=== PATIENT | female | born 1960 | race Caucasian/White ===

== ENCOUNTER 2024-03-03 03:32 | Inpatient (IN) | payer MEDICARE, OTHER, SELFPAY ==
[2024-03-02 23:11] VITALS: BMI 42.3
[2024-03-02 23:17] VITALS: BP 107/75
[2024-03-02 23:37] LABS: % Basophils 0.6 % (0-2); % Eosinophils 3.6 % (0-6); % Immature Granulocytes 1.8 % (0-0.5); % Lymphocytes 12.3 % (20.5-51.1); % Monocytes 10.7 % (1.7-9.3); Absolute Basophils 0.1 10^3/uL (0-0.2); Absolute Eosinophils 0.3 10^3/uL (0-0.7); Absolute Immature Granulocytes 0.2 10^3/uL (0-0.05); Absolute Lymphocytes 1.1 10^3/uL (1.2-3.4); Absolute Neutrophils 6.4 10^3/uL (1.4-6.5); Hematocrit 27.5 % (37.0-47.0); Hemoglobin 8.6 g/dL (12.0-16.0); Mean Corp Hgb Conc. 31.3 g/dL (33.0-37.0); Mean Corpuscular Hgb 30.2 pg (27.0-31.0); Mean Corpuscular Volume 96.5 fL (81.0-99.0); Mean Platelet Volume 8.7 fL (7.4-10.4); Nucleated Red Blood Cells % 0 %; Platelet Count 364 10^3/uL (130-400); Red Blood Cell Count 2.85 10^6/uL (4.20-5.40); Red Cell Dist. Width 14.6 % (11.5-14.5)
[2024-03-02 23:40] LABS: ALT (SGPT) < 10 U/L (0-35); AST (SGOT) 16 U/L (14-36); Albumin 2.6 g/dl (3.5-5.0); Alkaline Phosphatase 286 U/L (38-126); Blood Urea Nitrogen 25 mg/dl (7-17); Calcium 8.5 mg/dl (8.4-10.2); Carbon Dioxide 34 mmol/L (22-30); Chloride 100 mmol/L (98-107); Estimated Creatinine Clearance 98 ml/min; Glucose 107 mg/dl (70-99); Sodium 135 mmol/L (135-145); Total Bilirubin 0.3 mg/dl (0.2-1.3); Total Protein 5.8 g/dl (6.3-8.2); eGFR > 60.00
[2024-03-03] VITALS (26 sets, daily range): BP systolic 96–162; BP diastolic 38–128; BMI 44.0
[2024-03-03] MEDS: MORPHINE SULFATE 4 MG IV (02:04)
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
[2024-03-03] MEDS: NSS 500 IV (02:53)
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
[2024-03-03 07:08] LABS: Hematocrit 26.7 % (37.0-47.0); Hemoglobin 8.2 g/dL (12.0-16.0); Mean Corp Hgb Conc. 30.7 g/dL (33.0-37.0); Mean Corpuscular Hgb 29.8 pg (27.0-31.0); Mean Corpuscular Volume 97.1 fL (81.0-99.0); Mean Platelet Volume 8.7 fL (7.4-10.4); Platelet Count 364 10^3/uL (130-400); Red Blood Cell Count 2.75 10^6/uL (4.20-5.40); Red Cell Dist. Width 14.9 % (11.5-14.5); White Blood Cell Count 8.9 10^3/uL (4.8-10.8)
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
[2024-03-03] MEDS: ARTANE 1 MG PO ×2 (07:43→20:22)
[2024-03-03] MEDS: LASIX 20 MG PO (07:43)
[2024-03-03] MEDS: TYLENOL 1000 MG PO ×2 (07:43→21:27)
[2024-03-03] MEDS: COLACE 100 MG PO ×2 (07:44→20:23)
[2024-03-03] MEDS: PROTONIX 40 MG PO (07:44)
[2024-03-03] MEDS: DEPAKOTE (12 HR RELEASE) 750 MG PO ×2 (07:44→21:25)
[2024-03-03] MEDS: LUMINAL 32.4 MG PO ×2 (07:44→20:23)
[2024-03-03] MEDS: SINGULAIR 10 MG PO (07:44)
[2024-03-03] MEDS: SEROQUEL 200 MG PO ×2 (07:44→21:27)
[2024-03-03] MEDS: KLONOPIN 0.25 MG PO ×2 (07:44→22:25)
[2024-03-03] MEDS: SEROQUEL 50 MG PO (07:44)
[2024-03-03] MEDS: PAXIL 30 MG PO (07:44)
[2024-03-03] MEDS: SYNTHROID 150 MCG PO (07:44)
[2024-03-03] MEDS: SYMBICORT 80/4.5 MCG INHALER 2 PUFF INH ×2 (07:54→20:10)
[2024-03-03 08:03] LABS: Blood Urea Nitrogen 22 mg/dl (7-17); Calcium 8.5 mg/dl (8.4-10.2); Carbon Dioxide 32 mmol/L (22-30); Chloride 103 mmol/L (98-107); Estimated Creatinine Clearance 117 ml/min; Glucose 90 mg/dl (70-99); Iron 48 ug/dl (37-170); Sodium 137 mmol/L (135-145); eGFR > 60.00
[2024-03-03 08:12] LABS: Percent Saturation 17 % (20-50); Total Iron Binding Capacity 272 ug/dl (265-497)
[2024-03-03 08:53] LABS: Vitamin B12 634 pg/ml (239-931)
--- NOTE | 2024-03-03 12:15 | CON.CAR ---
Addendum entered and electronically signed by Renato Burrell MD 03/03/24 13:03:
I saw and examined the patient.
The SUPERVISOR PASTE MIXING's note was reviewed and I agree with the note.
Comment:
63-year-old female with schizoaffective disorder, bilateral lower extremity lymphedema and DVT on apixaban who presents with hip fracture following a mechanical fall from her wheelchair. Cardiology is consulted for preoperative risk stratification.
She has no known cardiac history. She is a poor historian but denies any active cardiac symptoms including chest pain, shortness of breath, and syncope. According to her home medication list, she takes Lasix as needed for her lymphedema,
simvastatin for hyperlipidemia, and apixaban for history of PE but is not on any other cardiac meds to suggest that she has coronary artery disease, heart failure, or arrhythmia. Her physical exam is notable for a regular rate and rhythm with no
murmurs, rubs, gallops. She has lower extremity edema bilaterally that appears to be chronic and lungs are clear to auscultation. Labs are notable for creatinine 0.6, hemoglobin 8.2, and normal electrolytes. ECG from 03/02/2024 shows normal sinus
rhythm with low voltage and no evidence of ischemia. In terms of preoperative risk stratification, we are not able to get an accurate assessment of her exercise tolerance due to her being wheelchair-bound but there is nothing in her history,
physical, labs, or ECG to suggest that she has unstable cardiac disease that would preclude surgery. She is at moderate risk for surgery due to her obesity and anemia but I do not think that she needs any further cardiovascular testing prior to
undergoing surgery (which is already planned for 1 PM today). Cardiology will see her postoperatively to ensure that she is stable. Recommend continued telemetry monitoring in the perioperative period. Please call with any additional questions or
concerns.
Original Note:
Consultation
Consultation Request
Date/Time Consultation Requested: 03/03/2024 11:45
Date/Time Consultation Performed: 03/03/2024 11:55
Requesting Provider: Dr. Buchanan
Performing Provider: SEVEN Lara for Dr. Burrell
Reason for Consultation: Cardiac risk assessment
Medical History
-
Chief Complaint: Left lower extremity pain
History of Present Illness:
Germania Segovia is a 63-year-old female with schizoaffective disorder, bipolar disorder, parkinsonism, bilateral lower extremity lymphedema, seizure disorder, hypothyroidism, DVT (apixaban), asthma, cerebral aneurysm with coiling, SURGICAL FORCEPS FABRICATOR shunt, and
chronic ambulatory dysfunction who presented to the emergency department the chief complaint of left lower extremity pain. She endorsed associated swelling. She fell out of her wheelchair last week and has had pain since then. X-rays were
completed at her nursing facility and revealed a femoral fracture. She was then sent to the emergency department this morning for evaluation. Cardiology was consulted for risk assessment. Due to her mental status, she is not able to provide
detailed history. She is able to verbalize she is having no chest pain, shortness of breath, nor dizziness.
Past Medical History
Past Medical History: Hypercholesterolemia
Past Surgical History: Brain (Aneurysmal coiling, SURGICAL FORCEPS FABRICATOR shunt), Gynecological and Orthopedic
Social History
Tobacco: Non-Smoker
Alcohol: None
Drug: None
Personal: Single
Living: Skilled Nursing
Employment: Disabled
Family History
Family History: Unable to Obtain
Allergies / Home Medications
Allergy/AdvReac Type Severity Reaction Status Date / Time
amoxicillin Allergy Unknown Verified 03/02/24 22:58
aztreonam [From Azactam] Allergy Unknown Verified 03/02/24 22:58
Penicillins Allergy Rash Verified 03/02/24 22:58
vancomycin Allergy Unknown Verified 03/02/24 22:58
�Medication �Instructions �Recorded �Confirmed �Type
docusate sodium 100 mg capsule 100 mg PO BID Constipation 04/29/19 03/02/24 History
(Colace)
paroxetine HCl 30 mg tablet (Paxil) 30 mg PO DAILY Mental 04/29/19 03/02/24 History
Health/Anxiety
trihexyphenidyl 2 mg tablet 1 mg PO BID Neurological Condition 04/29/19 03/02/24 History
acetaminophen 500 mg tablet 1,000 mg PO Q8HPRN PRN mild pain 03/27/20 03/02/24 History
(Tylenol Extra Strength)
montelukast 10 mg tablet 10 mg PO DAILY Lung/breathing 06/10/20 03/02/24 History
(Singulair) issues
calcium carbonate (Antacid 2 tab PO [id number] PRN indigestion 07/09/21 03/02/24 History
(calcium carbonate))
levothyroxine 150 mcg tablet 150 mcg PO DAILY Thyroid 07/09/21 03/02/24 History
cholecalciferol (vitamin D3) 125 125 mcg PO DAILY Supplement 08/28/21 03/02/24 History
mcg (5,000 unit) tablet
diclofenac sodium 1 % topical gel 4 g topical BID bilateral knees 08/28/21 03/02/24 History
divalproex 500 mg tablet,delayed 750 mg PO BID Mental Health/Anxiety 08/28/21 03/02/24 History
release
fluticasone furoate 100 1 inh inhalation R DAILY 08/28/21 03/02/24 History
mcg-vilanterol 25 mcg/dose Lung/breathing issues
inhalation powder
ipratropium 0.5 mg-albuterol 3 mg 3 ml inhalation R Q4HPRN PRN sob 08/28/21 03/02/24 History
(2.5 mg base)/3 mL nebulization
soln
magnesium hydroxide 400 mg/5 mL 30 ml PO DAILYPRN PRN constipation 08/28/21 03/02/24 History
oral suspension (Milk of Magnesia)
quetiapine 200 mg tablet 200 mg PO BID Mental Health/Anxiety 08/28/21 03/02/24 History
quetiapine 50 mg tablet 50 mg PO DAILY Mental 08/28/21 03/02/24 History
Health/Anxiety
simethicone 80 mg chewable tablet 80 mg PO Q4HPRN PRN gas 08/28/21 03/02/24 History
(Gas Relief 80 (simethicone))
simvastatin 10 mg tablet 10 mg PO QPM High cholesterol 08/28/21 03/02/24 History
sodium phosphates 19 gram-7 118 ml VT DAILYPRN PRN constipation 08/29/21 03/02/24 History
gram/118 mL enema (Fleet Enema)
bisacodyl 5 mg tablet,delayed 5 mg PO DAILYPRN PRN constipation 02/21/22 03/02/24 History
release (Dulcolax (bisacodyl))
clonazepam 0.5 mg tablet (Klonopin) 0.5 mg PO HS 02/21/22 03/02/24 History
apixaban 5 mg tablet (Eliquis) 5 mg PO Q12H 09/11/22 03/02/24 History
pantoprazole 40 mg tablet,delayed 40 mg PO DAILY 09/11/22 03/02/24 History
release
benzonatate 100 mg capsule 100 mg PO TIDPRN PRN cough 03/02/24 03/02/24 History
clonazepam 0.25 mg disintegrating 0.25 mg PO DAILY 03/02/24 03/02/24 History
tablet
clonazepam 0.25 mg disintegrating 0.25 mg PO Q8HPRN PRN anxiety 03/02/24 03/02/24 History
tablet
fluticasone propionate 50 1 spray intranasal HS 03/02/24 03/02/24 History
mcg/actuation nasal
spray,suspension
furosemide 20 mg tablet 10 mg PO DAILY@1400 03/02/24 03/02/24 History
furosemide 20 mg tablet 20 mg PO DAILY 03/02/24 03/02/24 History
ipratropium 0.5 mg-albuterol 3 mg 3 ml inhalation R QID 03/02/24 03/02/24 History
(2.5 mg base)/3 mL nebulization
soln
phenobarbital 30 mg tablet 30 mg PO BID 03/02/24 03/02/24 History
Review of Systems
-
History Source: Patient
All other systems: Negative unless noted
Constitutional: Fatigue
EENT: No Symptoms
Respiratory: No Symptoms
Cardiac: No Symptoms
Abdomen/GI: No Symptoms
: No Symptoms
Musculoskeletal: Joint Pain (Left leg)
Skin: No Symptoms
Neurological: No Symptoms
Endocrine: No Symptoms
Hematologic/Lymphatic: No Symptoms
Physical Exam
Vital Signs
Temp Pulse Resp BP Pulse Ox
98.1 F 71 20 98/60 97
03/03/24 12:05 03/03/24 12:05 03/03/24 12:05 03/03/24 12:05 03/03/24 11:16
Lab Results
03/03/24 06:42
03/03/24 06:42
Physical Exam
General: Well Developed, Well Nourished, No Apparent Distress and Comfortable
HEENT: Normocephalic, Anicteric and Moist Mucous Membranes
Respiratory: Clear and Non Labored Respirations
Cardiac: S1/S2, Regular Rhythm and Peripheral Edema (+2 bilateral lower extremity edema)
Breast: Deferred by me
GI: Soft, Non Tender, Non Distended and Normal Bowel Sounds
Rectal: Deferred by Provider
Genito-urinary: No Costovertebral Tender
Musculoskeletal: No Clubbing and No Cyanosis
Skin: Warm and Dry
Neuro: Other (Drowsy but is AAOx3)
Hematologic/Lymphatic: No Lymphadenopathy
Psych: Calm
Impression / Plan
-
Cardiac risk assessment
-Unable to complete 4 METS, at her baseline she is wheelchair-bound
-No angina
-No syncope
-EKG without ischemic change
-No history of coronary artery disease
-No history of heart failure
Fall with left femoral shaft fracture, displaced
-Plans for OR today
Anemia, likely of chronic disease
-Receiving 1 PRBC prior to the OR, per prior
Lymphedema, chronic, on
Asthma, no acute exacerbation on Singulair
Prior DVT, on apixaban
Schizophrenia/bipolar disorder/depression, on medical therapy, per primary
Seizure disorder, on phenobarbital, per primary
Dyslipidemia, on simvastatin
Parkinsonism
Chronic ambulatory dysfunction
Brain aneurysm status post clipping
SURGICAL FORCEPS FABRICATOR shunt
Hypothyroidism, on levothyroxine
Obesity, BMI 44, she would benefit from weight loss
Data Reviewed
-
EKG: Report Reviewed by me
Radiology: Report Reviewed by me
Labs: Labs Reviewed by me
Old Records: Reviewed
--- NOTE | 2024-03-03 12:31 | CM ---
Reviewed the chart notes. Patient is scheduled for the OR for repair of L femur fx. CM spoke with [place] Electrical Manager at [facility]. Patient is total care with ADLs. Patient is able to feed self after set-up. The patient is a
zeny lift. 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 No precert required. CM continues to be available to patient/family and is monitoring medical plan for needs at discharge.
Plan: Discharge back to SNF once medically stable.
--- NOTE | 2024-03-03 15:59 | PTCARENOTE ---
pt sent to the OR with blood product infusing. end time is approximate. see OR documetation
[2024-03-03] MEDS: TYLENOL PO (16:22)
[2024-03-03] MEDS: DILAUDID 0.25 MG IV (19:02)
[2024-03-03] MEDS: DUONEB 3 ML INH (19:21)
[2024-03-03] MEDS: LIPITOR 10 MG PO (20:20)
[2024-03-03] MEDS: SENOKOT 17.2 MG PO (21:27)
[2024-03-03] MEDS: ANCEF 5 IV (22:25)
[2024-03-04 03:04] VITALS: BP 105/66
[2024-03-04 04:54] VITALS: BMI 44.0
[2024-03-04] MEDS: ANCEF 5 IV (05:09)
[2024-03-04] MEDS: SYNTHROID 150 MCG PO (05:09)
[2024-03-04 07:01] VITALS: BP 104/62
--- NOTE | 2024-03-04 07:41 | W.PN.ORTHO ---
Today's Communication / Plan
-
POD #1 s/p left femur IM nail.
-PT/OT to tolerance; WBAT. Wheelchair bound at baseline.
-Eliquis to resume.
-Pain control as needed.
-Appreciate case management efforts in d/c plannign - will likely need rehab/SNF.
-Hbg pending this am, did receive unit of blood prior to surgery yesterday.
-Dressings to remain in place 7-10 days. [place]wood to be removed 2 weeks post op.
-F/u in 2 weeks for repeat x-rays and staple removal.
Assessment
.
Distal Motor Intact: Yes
Dressing:
Clean, dry and intact.
Assessment:
POD #1 s/p left femur IM nail.
-PT/OT to tolerance; WBAT. Wheelchair bound at baseline.
-Eliquis to resume.
-Pain control as needed.
-Appreciate case management efforts in d/c plannign - will likely need rehab/SNF.
-Hbg pending this am, did receive unit of blood prior to surgery yesterday.
-Dressings to remain in place 7-10 days. Elwood to be removed 2 weeks post op.
-F/u in 2 weeks for repeat x-rays and staple removal.
Plan
.
Surgery / Date: 03/03/[address] Whitaker
DVT Prophylaxis: Other
Activity:
Out of bed.
PT/OT
Discharge Plan: SNF
Subjective
.
.:
Patient resting comfortably, asleep on my arrival. No c/o pain at rest. Per nursing no pain medication administered since 9 pm last night.
Vital Signs and Labs
.
Vital Signs and Labs:
Lab Results
03/03/24 06:42
Temp Pulse Resp BP Pulse Ox
98.4 F 76 16 104/62 98
03/04/24 07:01 03/04/24 07:01 03/04/24 07:01 03/04/24 07:01 03/04/24 07:01
Physical Exam
-
Left leg: multiple aquacel dressings present with moderate drainage. Moderate diffuse swelling. Diffuse TTP over distal femur. ROM not tested. N/v intact distally.
[2024-03-04] MEDS: SYMBICORT 80/4.5 MCG INHALER 2 PUFF INH ×2 (07:59→20:47)
[2024-03-04 08:02] LABS: Hematocrit 28.4 % (37.0-47.0); Hemoglobin 9.3 g/dL (12.0-16.0)
[2024-03-04] MEDS: LASIX 20 MG PO (08:55)
[2024-03-04] MEDS: SEROQUEL 200 MG PO ×2 (08:55→19:37)
[2024-03-04] MEDS: KLONOPIN 0.25 MG PO ×3 (08:56→19:37)
[2024-03-04] MEDS: SINGULAIR 10 MG PO (08:56)
[2024-03-04] MEDS: SEROQUEL 50 MG PO (08:56)
[2024-03-04] MEDS: DEPAKOTE (12 HR RELEASE) 750 MG PO ×2 (08:56→19:38)
[2024-03-04] MEDS: ELIQUIS 5 MG PO ×2 (08:56→22:11)
[2024-03-04] MEDS: LUMINAL 32.4 MG PO ×2 (08:56→19:38)
[2024-03-04] MEDS: COLACE 100 MG PO ×2 (08:57→19:37)
[2024-03-04] MEDS: PAXIL 30 MG PO (08:57)
[2024-03-04] MEDS: ARTANE 1 MG PO ×2 (08:57→19:37)
[2024-03-04] MEDS: PROTONIX 40 MG PO (08:57)
[2024-03-04] MEDS: TYLENOL 1000 MG PO ×3 (08:57→22:11)
--- NOTE | 2024-03-04 09:03 | CM ---
Addendum entered by Anai Das RN 03/04/24 09:06:
Call report to: [phone], [phone]
Fax report to: [phone]
Original Note:
Reviewed the chart notes. Patient is s/p left femur IM nail. Patient with WBAT to LLE. CM continues to be available to patient/family and is monitoring medical plan for needs at discharge.
Plan: Discharge back to [facility] when medically stable. No precert required.
[2024-03-04 11:01] VITALS: BP 109/79
--- NOTE | 2024-03-04 11:58 | W.PN.CD ---
Today's Communication / Plan
-
Cardiology to sign off
Impression / Plan
-
63-year-old female with schizoaffective disorder, bilateral lower extremity lymphedema and DVT on apixaban who presents with hip fracture following a mechanical fall from her wheelchair. Cardiology was consulted for preoperative risk
stratification. She successfully underwent left femur IM nail on 03/03/2024.
History of DVT
-Continue Eliquis
Chronic lower extremity edema
-Continue furosemide
Hyperlipidemia
-Continue simvastatin
Cardiology will sign off at this time. Please call with any additional questions or concerns.
Subjective: patient doing well. No CV complaints. Was not placed on telemetry overnight.
Physical Exam
Vital Signs/Labs
Vital Signs
Temp Pulse Resp BP Pulse Ox
97.7 F 87 20 109/79 93
03/04/24 11:01 03/04/24 11:01 03/04/24 11:01 03/04/24 11:01 03/04/24 11:01
03/03/24 03/04/24 03/05/24
06:59 06:59 06:59
Actual Weight 116.261 kg 116.12 kg
03/04/24 07:56
03/03/24 06:42
Physical Exam
Constitutional: No acute distress and Comfortable
Cardiovascular: Rhythm & rate is regular, Pedal edema is absent, S1S2 is normal and Murmur/rub/gallop absent
Respiratory: Respiratory effort normal
Data Reviewed
-
Date of Service: March 04, 2024
Medical Decision Making: Reviewed Test Results, Independent Historian Assessment, Test Interpretation and Review of Case with other Provider
Labs: Labs Reviewed by me
[2024-03-04] MEDS: MORPHINE SULFATE 2 MG IV ×3 (12:41→22:12)
--- NOTE | 2024-03-04 13:04 | PTOTSP ---
Patient is a jorge lift OOB at baseline at [facility] and is not able to meaningfully participate in therapy session and mobility without agitation and poor ability to be gently reoriented.
Patient is not appropriate for skilled therapy.
Recommend use of Jorge lift for OOB in house and return to [facility].
--- NOTE | 2024-03-04 15:16 | W.PN.HOSP.TC ---
Today's Communication/Plan
-
Assessment / Plan
Assessment / Plan
NAD
Scleral Anicteric
MMM
No JVD
CTABL
RRR, S1/S2
Soft, NT, ND, BS+
Warm, Dry
AAOx3
Calm
Left hip fracture
Postop day 1 status post left femur IM nail
PT/OT
Per Ortho weightbearing as tolerated/wheelchair bedbound at baseline
DVT prophylaxis resume home Eliquis 5 mg twice a day
Pain management per orthopedics
Incentive spirometer ankle pumps
Outpatient follow-up with orthopedic surgery
Normocytic anemia
S/p 1 unit PRBC
Will require outpatient age-appropriate cancer screening with GI and mammography
Schizophrenia/schizoaffective disorder along with bipolar and Parkinson's
Continue neuropsychiatric agents
Holding parameters for excessive sedation
Asthma without acute exacerbation
Stable, continue MDIs and montelukast
Hypothyroidism
Continue levothyroxine
Chronic lymphedema
Continue SCD/teds
Continue p.o. Lasix
Anticipated Discharge: 24 - 48 hours
Subjective/Interval History
-
Date of Service: March 04, 2024
Seen and examined. No new complaints. No acute overnight events.
Objective Data
-
Labs:
Laboratory Results
03/04/24
07:56
Hgb 9.3 L
Hct 28.4 L
Vital Signs:
Vital Signs
Temp Pulse Resp BP Pulse Ox
97.7 F 87 20 109/79 93
03/04/24 11:01 03/04/24 11:01 03/04/24 11:01 03/04/24 11:01 03/04/24 11:01
I&O
03/03/24 03/04/24 03/05/24
06:59 06:59 06:59
Intake Total 500 / 500 490 / 490
Balance 500 / 500 490 / 490
[2024-03-04 15:42] VITALS: BP 122/88
[2024-03-04] MEDS: LIPITOR 10 MG PO (15:49)
[2024-03-04 18:51] VITALS: BP 121/77
[2024-03-04] MEDS: SENOKOT 17.2 MG PO (22:11)
[2024-03-04 23:06] VITALS: BP 116/80
[2024-03-05 04:00] VITALS: BP 111/72
[2024-03-05] MEDS: SYNTHROID 150 MCG PO (05:48)
[2024-03-05 06:00] VITALS: BMI 45.2
--- NOTE | 2024-03-05 07:08 | W.PN.ORTHO ---
Today's Communication / Plan
-
PT/OT
Weightbearing as tolerated
Eliquis resume
Skin clip removal 2 weeks postop
Follow-up orthopedics 4 weeks postop for x-ray
FDC facility once medically stable
Assessment
.
Distal Motor Intact: Yes
Dressing:
Clean, dry and intact.
Plan
.
Surgery / Date: 03/03/[address] Whitaker
DVT Prophylaxis: Other
Activity:
Out of bed.
PT/OT
Discharge Plan: SNF
Subjective
.
.:
Patient resting comfortably.
Vital Signs and Labs
.
Vital Signs and Labs:
Lab Results
03/04/24 07:56
03/03/24 06:42
Temp Pulse Resp BP Pulse Ox
98.9 F 81 18 111/72 91
03/04/24 23:06 03/05/24 04:00 03/05/24 04:00 03/05/24 04:00 03/05/24 04:00
[2024-03-05 07:50] VITALS: BP 132/76
[2024-03-05] MEDS: SYMBICORT 80/4.5 MCG INHALER 2 PUFF INH (07:52)
--- NOTE | 2024-03-05 08:38 | PN.CDI ---
CDI
- -
CDI:
Physician Documentation Request
Admit Date: 03/03/24 03:32
Dear Doctor Dewayne,
Patient admitted with left hip fracture s/p open reduction internal fixation of left femur.
Please review the following and provide your response in the progress notes.
Clinical Indicators:
Height: 5' 4'
Weight: 263 lb
BMI: 45.1
Please provide an associated diagnosis related to the abnormal BMI, such as:
Morbid obesity
Obesity
BMI is not significant
Other
BMI > or = to 40
Overweight
Obesity:
Due to excess calories
Drug induced
Due to other cause
Severe or morbid obesity:
With alveolar hypoventilation (Obesity hypoventilation syndrome)
Without alveolar hypoventilation
Use of terms such as suspected, likely, concern for, or probable (associated with a specific diagnosis that is being evaluated, monitored, or treated as if it exists) are acceptable and can be coded in the inpatient setting, when documented at the
time of discharge.
Thank you,
Sheela THEODORE,RN,CCDS
CDI Specialist
Available via tiger text
Please use your independent medical judgment in providing your response.
[2024-03-05] MEDS: DEPAKOTE (12 HR RELEASE) 750 MG PO (08:53)
[2024-03-05] MEDS: LUMINAL 32.4 MG PO (08:53)
[2024-03-05] MEDS: LASIX 20 MG PO (08:53)
[2024-03-05] MEDS: SEROQUEL 200 MG PO (08:53)
[2024-03-05] MEDS: ELIQUIS 5 MG PO (08:54)
[2024-03-05] MEDS: ARTANE 1 MG PO (08:54)
[2024-03-05] MEDS: PAXIL 30 MG PO (08:54)
[2024-03-05] MEDS: SEROQUEL 50 MG PO (08:54)
[2024-03-05] MEDS: KLONOPIN 0.25 MG PO (08:54)
[2024-03-05] MEDS: TYLENOL 1000 MG PO ×2 (08:54→15:42)
[2024-03-05] MEDS: PROTONIX 40 MG PO (08:54)
[2024-03-05] MEDS: SINGULAIR 10 MG PO (08:54)
[2024-03-05] MEDS: COLACE 100 MG PO (08:55)
[2024-03-05 09:20] LABS: Blood Urea Nitrogen 18 mg/dl (7-17); Calcium 8.3 mg/dl (8.4-10.2); Carbon Dioxide 32 mmol/L (22-30); Chloride 100 mmol/L (98-107); Estimated Creatinine Clearance 102 ml/min; Glucose 92 mg/dl (70-99); Hematocrit 27.5 % (37.0-47.0); Hemoglobin 8.8 g/dL (12.0-16.0); Mean Corpuscular Hgb 30.4 pg (27.0-31.0); Mean Corpuscular Volume 95.2 fL (81.0-99.0); Platelet Count 301 10^3/uL (130-400); Potassium 4.2 mmol/L (3.5-5.1); Red Blood Cell Count 2.89 10^6/uL (4.20-5.40); Sodium 135 mmol/L (135-145); White Blood Cell Count 9.9 10^3/uL (4.8-10.8); eGFR > 60.00
--- NOTE | 2024-03-05 11:14 | CM ---
Addendum entered by Anai Das RN 03/05/24 14:31:
Voice message with CM contact information left regarding patient being discharged back to [facility] today.
Addendum entered by Anai Das RN 03/05/24 11:18:
Medical necessity and transport forms on chart.
Original Note:
Reviewed the chart notes and spoke with the patient at the bedside. IMM reviewed. CM continues to be available to patient/family and is monitoring medical plan for needs at discharge.
Plan: Discharge back to [facility] when medically stable.
Call report to: [phone], [phone]
Fax report to: [phone]
[2024-03-05 12:05] VITALS: BP 120/64
--- NOTE | 2024-03-05 12:49 | PN.CDI ---
CDI
- -
CDI:
Physician Documentation Request
Admit Date: 03/03/24 03:32
Dear Doctor Dewayne,
Patient admitted with left hip fracture s/p open reduction internal fixation of left femur.
H&P, 'Patient indicates that she fell out of her chair sometime last week.'
03/04 PN,'....wheelchair bedbound at baseline.'
Home med's include Cholecalciferol.
Please provide in your note the likely etiology/ etiologies for left hip fracture:
Multifactorial due to low level fall and age/immobility related osteoporosis
Low level fall only
Other
Use of terms such as suspected, likely, concern for, or probable (associated with a specific diagnosis that is being evaluated, monitored, or treated as if it exists) are acceptable and can be coded in the inpatient setting, when documented at the
time of discharge.
Thank you,
Sheela THEODORE,RN,CCDS
CDI Specialist
Available via tiger text
Please use your independent medical judgment in providing your response.
--- NOTE | 2024-03-05 14:26 | W.PN.HOSP.TC ---
Today's Communication/Plan
-
DC SNF
More than 30 minutes spent in discharge including
Final examination of the patient
Summarizing hospital stay
Instructions for continuing care to all relevant caregivers
Preparation of discharge records, prescriptions, and referral forms
Total time spent (in minutes): 33mins
Assessment / Plan
Assessment / Plan
NAD
Scleral Anicteric
MMM
No JVD
CTABL
RRR, S1/S2
Soft, NT, ND, BS+
Left lateral thigh incisions are covered by a bandage that is noted dried blood, there is no Cullens sign
Warm, Dry
AAOx3
Calm
Left hip fracture
Postop day 1 status post left femur IM nail
PT/OT
Per Ortho weightbearing as tolerated/wheelchair bedbound at baseline
DVT prophylaxis resume home Eliquis 5 mg twice a day
Pain management per orthopedics
Incentive spirometer ankle pumps
Outpatient follow-up with orthopedic surgery
Normocytic anemia
S/p 1 unit PRBC
Will require outpatient age-appropriate cancer screening with GI and mammography
Schizophrenia/schizoaffective disorder along with bipolar and Parkinson's
Continue neuropsychiatric agents
Holding parameters for excessive sedation
Asthma without acute exacerbation
Stable, continue MDIs and montelukast
Hypothyroidism
Continue levothyroxine
Chronic lymphedema
Continue SCD/teds
Continue p.o. Lasix
Anticipated Discharge: Today
Subjective/Interval History
-
Date of Service: March 05, 2024
Seen and examined. No new complaints. No acute overnight events per
Objective Data
-
Labs:
Laboratory Results
03/05/24
08:52
WBC 9.9
Hgb 8.8 L
Hct 27.5 L
Plt Count 301
Sodium 135
Potassium 4.2
Chloride 100
Carbon Dioxide 32 H
BUN 18 H
Creatinine 0.7
Glucose 92
Calcium 8.3 L
Vital Signs:
Vital Signs
Temp Pulse Resp BP Pulse Ox
98.3 F 87 20 120/64 94
03/05/24 12:05 03/05/24 12:05 03/05/24 12:05 03/05/24 12:05 03/05/24 08:00
I&O
03/04/24 03/05/24 03/06/24
06:59 06:59 06:59
Intake Total 490 / 490 440 / 440
Output Total 225 / 225
Balance 490 / 490 215 / 215
--- NOTE | 2024-03-05 14:29 | W.DCSUMMARY ---
Addendum entered and electronically signed by Kashmir Buchanan MD 03/05/24 16:45:
Multifactorial due to low level fall and age/immobility related osteoporosis
Morbid obesity
Original Note:
Discharge Summary
Discharge Data
Date of Admission: 03/03/24
Date of Discharge: 03/05/24
-
Pending Results: No
Hospital Course
63y F with PMH significant for bipolar disorder, Parkinsonism and hypothyroidism
Presented with left lower extremity pain and swelling that had been ongoing x 1 week, after falling from a chair. X-ray demonstrated left femur fracture. Evaluated by orthopedics recommended operative intervention with left femur intramedullary
nail. Noted to have a hemoglobin that was lower than previous which was 11-8. Therefore received 1 unit of PRBCs preoperatively.
Preoperatively was also evaluated by cardiology did not believe any additional testing was required therefore was able to proceed with surgery.
In terms of that anemia will need to see outpatient GI for additional workup along with age-appropriate cancer screening therefore outpatient PCP follow-up
Was seen by physical therapy postoperatively recommended SNF placement. Will discharge back to [facility]
Per Ortho
Skin clip removal 2 weeks postop
Follow-up orthopedics 4 weeks postop for x-ray
Discharge Plan
-
Patient Disposition: Senior Living/SNF
Discharge Diagnosis/Procedures: Left femur fracture s/p left femur intramedullary nail
Condition: Good
Activity Restrictions/Additional Instructions:
Presented with left lower extremity pain and swelling that had been ongoing x 1 week, after falling from a chair. X-ray demonstrated left femur fracture. Evaluated by orthopedics recommended operative intervention with left femur intramedullary
nail. Noted to have a hemoglobin that was lower than previous which was 11-8. Therefore received 1 unit of PRBCs preoperatively.
Preoperatively was also evaluated by cardiology did not believe any additional testing was required therefore was able to proceed with surgery.
In terms of that anemia will need to see outpatient GI for additional workup along with age-appropriate cancer screening therefore outpatient PCP follow-up
Was seen by physical therapy postoperatively recommended SNF placement. Will discharge back to [facility]
Per Ortho
Skin clip removal 2 weeks postop
Follow-up orthopedics 4 weeks postop for x-ray
Referrals:
Benja Whitaker MD [Active] - in one to two weeks
UNKNOWN - PT DOES,NOT KNOW [Family Provider] -
Prescriptions:
Continued
paroxetine HCl [Paxil] 30 MG tablet
30 mg PO DAILY
docusate sodium [Colace] 100 MG capsule
100 mg PO BID
trihexyphenidyl 2 MG tablet
1 mg PO BID
acetaminophen [Tylenol Extra Strength] 500 MG tablet
1,000 mg PO Q8HPRN MDD 3000mg PRN (Reason: mild pain)
montelukast [Singulair] 10 MG tablet
10 mg PO DAILY
levothyroxine 150 MCG tablet
150 mcg PO DAILY
calcium carbonate [Antacid (calcium carbonate)] 1 TABLET tablet,chewable
2 tab PO [id number] PRN (Reason: indigestion)
ipratropium-albuterol 0.5 mg-3 mg(2.5 mg base)/3 mL Solution For Nebulization
3 ml INHALATION R Q4HPRN PRN (Reason: sob)
simvastatin 10 mg Tablet
10 mg PO QPM
quetiapine 200 mg Tablet
200 mg PO BID
magnesium hydroxide [Milk of Magnesia] 400 mg/5 mL Suspension
30 ml PO DAILYPRN PRN (Reason: constipation)
quetiapine 50 mg Tablet
50 mg PO DAILY
diclofenac sodium 1 % Gel
4 g TOPICAL BID MDD 32 grams
cholecalciferol (vitamin D3) 125 mcg (5,000 unit) Tablet
125 mcg PO DAILY
fluticasone furoate-vilanterol 100-25 mcg/dose Blister With Device
1 inh INHALATION R DAILY
simethicone [Gas Relief 80 (simethicone)] 80 MG tablet,chewable
80 mg PO Q4HPRN PRN (Reason: gas)
divalproex 500 mg Tablet,Delayed Release (Dr/Ec)
750 mg PO BID
Fleet Enema 19-7 gram/118 mL Enema
118 ml [place] DAILYPRN PRN (Reason: constipation)
clonazepam [Klonopin] 0.5 mg Tablet
0.5 mg PO HS
bisacodyl [Dulcolax (bisacodyl)] 5 mg Tablet,Delayed Release (Dr/Ec)
5 mg PO DAILYPRN PRN (Reason: constipation)
pantoprazole 40 mg Tablet,Delayed Release (Dr/Ec)
40 mg PO DAILY
Eliquis 5 mg Tablet
5 mg PO Q12H
ipratropium-albuterol 0.5 mg-3 mg(2.5 mg base)/3 mL Solution For Nebulization
3 ml INHALATION R QID
benzonatate 100 mg Capsule
100 mg PO TIDPRN PRN (Reason: cough)
phenobarbital 30 mg Tablet
30 mg PO BID
furosemide 20 mg Tablet
10 mg PO DAILY@1400
furosemide 20 mg Tablet
20 mg PO DAILY
fluticasone propionate 50 mcg/actuation [place],Suspension
1 spray INTRANASAL HS
clonazepam 0.25 mg Tablet,Disintegrating
0.25 mg PO Q8HPRN PRN (Reason: anxiety)
clonazepam 0.25 mg Tablet,Disintegrating
0.25 mg PO DAILY
Discharge Orders:
Discharge Patient (As Directed); Ordered 03/05/24
Ordered By: Kashmir Buchanan
Discharge Date and Time
Print Language: CONGOLESE
[2024-03-05 15:40] VITALS: BP 98/75
== END 2024-03-05 17:00 | DRG 481 ==
LOC: 2 SOUTH 03:32
PROVIDERS: Emergency Medicine; Orthopaedic Surgery Hand Surgery; Physician Assistant Surgical; ADMITTING PHYSICIAN Hospitalist; ATTENDING PHYSICIAN Hospitalist; CONSULT PHYSICIAN Orthopaedic Surgery; CONSULT PHYSICIAN Student in an Organized Health Care Education/Training Program; EMERGENCY PHYSICIAN Emergency Medicine
PROC: 0QSH06Z Reposition Left Tibia with Intramedullary Internal Fixation Device, Open Approach (ICD-10-PCS; 2024-03-03)
PROC: 0QSC06Z Reposition Left Lower Femur with Intramedullary Internal Fixation Device, Open Approach (ICD-10-PCS; 2024-03-03)
PROC: 30233N1 Transfusion of Nonautologous Red Blood Cells into Peripheral Vein, Percutaneous Approach (ICD-10-PCS; 2024-03-03)
DX: M80.052A Age-related osteoporosis with current pathological fracture, left femur, initial encounter for fracture (principal); F31.30 Bipolar disorder, current episode depressed, mild or moderate severity, unspecified; Z68.42 Body mass index [BMI] 45.0-49.9, adult; Z79.01 Long term (current) use of anticoagulants; G20.A1 Parkinson's disease without dyskinesia, without mention of fluctuations; E03.9 Hypothyroidism, unspecified; E78.00 Pure hypercholesterolemia, unspecified; E66.01 Morbid (severe) obesity due to excess calories; F20.9 Schizophrenia, unspecified; D64.9 Anemia, unspecified; I89.0 Lymphedema, not elsewhere classified; Z87.891 Personal history of nicotine dependence; Z99.3 Dependence on wheelchair
CPT/HCPCS: 73552; 76000; 80048; 80053; 82607; 83540; 83550; 85014; 85018; 85025; 85027; 86850; 86900; 86901; 86920; 93005; 94640; 96361; 96374; 97163; 97166; 99285; P9016

== ENCOUNTER 2024-04-16 06:24 | Emergency (ER) | payer MEDICARE, OTHER, SELFPAY ==
[2024-04-16 06:37] VITALS: BP 125/89
[2024-04-16 07:00] VITALS: BP 123/87
--- NOTE | 2024-04-16 07:43 | EDRN ---
Dr. Mcbride in to see pt at this time.
--- NOTE | 2024-04-16 07:47 | ED.GENMED ---
History of Present Illness
General
Chief Complaint: Fall
Source: patient
Time Seen by Provider: 04/16/24 07:24
History of Present Illness
History of Present Illness:
63-year-old female sent to the emergency room from [facility] where she evidently was found on the ground next to her bed. Patient offers no complaints to me but evidently told the nurse who evaluated her initially that she had pain
all over.
Past History
Past History
ED Past Medical History: Asthma, COPD, GERD, HTN, Hypercholesterolemia, Hypothyroidism, Psychiatric (major depression, schizoaffective disorder, paranoid personality disorder, Tib/Fib), Other (anemia, Dementia Parkinson, PNA, esophagitis, ) and
Other (Hyponatremia, anemia, obesity, secondary parkinsonism, pneumonia)
ED Past Surgical History: Brain (STEEL CUTTER shunt in the , with aneurysm coiling), Orthopedic and Other (V-P shunt)
Social History
Tobacco: Former smoker
Alcohol: None
Drug: None
Personal: Single
Living: group home
Employment: Disabled
Family History
Family History: Unable to obtain
Phy Exam
Physical Exam
Physical Exam:
General: Awake, Alert, Oriented to person. Appears chronically ill
Vitals: unremarkable
Head: Atraumatic
Eyes: Pupils equal, EOMI
Throat: Airway intact, no exudates
Neck: Trachea midline
Lungs: Clear and equal b/l
Heart: Regular rate, no murmurs
Abd: Soft, Nontender, No pulsatile mass
Neuro: Tardive dyskinesia versus Parkinson type movement. No focal weakness
Skin: Warm, dry, no rash
Extremities: pulses equal b/l, chronic bilateral lower extremity edema, no obvious pain with movement of lower extremities
Course
Orders/Labs/Results
Orders:
Orders
04/16/24 07:47
CT Head W/o Iv Contrast Urgent
Comment:
Reason For Exam: fall from bed
Vital Signs
Initial and Last Documented VS:
Initial Vital Signs
Temp Pulse Resp BP
98.3 F 93 20 125/89
04/16/24 06:37 04/16/24 06:37 04/16/24 06:37 04/16/24 06:37
Last Documented Vital Signs
Temp Pulse Resp BP Pulse Ox
98.3 F 90 16 112/89 92
04/16/24 06:37 04/16/24 10:08 04/16/24 10:08 04/16/24 10:08 04/16/24 10:08
MDM/Problems Addressed
Differential Diagnosis Includes:
Head injury, contusions
MDM/Problems Addressed:
Patient sent for evaluation after fall. Range of motion of her extremities appears to be intact without pain. There is no obvious head trauma. CT of the head shows no acute abnormalities. Vital signs are normal. Patient stable for discharge
back to her facility as there are no signs of significant traumatic injury from the fall.
*Radiology
Radiology exam reviewed: radiology read reviewed
*Critical Care Note
Total Time (30-74mins, 75-104mins- exclusive of procedures): Not Applicable
ED Attending Note
-
Portions of this chart may have been created with voice recognition software.� Occasional wrong word or��sound alike� substitutions may have occurred due to the inherent limitations of voice recognition software.
Discharge Plan
Departure
Patient Disposition: Care Home/SNF
Date of Disposition: 04/16/24
Time of Disposition: 08:46
Condition: Good
Discharge Problem:
Fall
Instructions: Preventing falls in adults
Prescriptions:
No Action
paroxetine HCl [Paxil] 30 MG tablet
30 mg PO DAILY
docusate sodium [Colace] 100 MG capsule
100 mg PO BID
trihexyphenidyl 2 MG tablet
1 mg PO BID
acetaminophen [Tylenol Extra Strength] 500 MG tablet
1,000 mg PO Q8HPRN MDD 3000mg PRN (Reason: mild pain)
montelukast [Singulair] 10 MG tablet
10 mg PO DAILY
levothyroxine 150 MCG tablet
150 mcg PO DAILY
calcium carbonate [Antacid (calcium carbonate)] 1 TABLET tablet,chewable
2 tab PO [id number] PRN (Reason: indigestion)
ipratropium-albuterol 0.5 mg-3 mg(2.5 mg base)/3 mL Solution For Nebulization
3 ml INHALATION R Q4HPRN PRN (Reason: sob)
simvastatin 10 mg Tablet
10 mg PO QPM
quetiapine 200 mg Tablet
200 mg PO BID
magnesium hydroxide [Milk of Magnesia] 400 mg/5 mL Suspension
30 ml PO DAILYPRN PRN (Reason: constipation)
quetiapine 50 mg Tablet
50 mg PO DAILY
diclofenac sodium 1 % Gel
4 g TOPICAL BID MDD 32 grams
cholecalciferol (vitamin D3) 125 mcg (5,000 unit) Tablet
125 mcg PO DAILY
fluticasone furoate-vilanterol 100-25 mcg/dose Blister With Device
1 inh INHALATION R DAILY
simethicone [Gas Relief 80 (simethicone)] 80 MG tablet,chewable
80 mg PO Q4HPRN PRN (Reason: gas)
divalproex 500 mg Tablet,Delayed Release (Dr/Ec)
750 mg PO BID
Fleet Enema 19-7 gram/118 mL Enema
118 ml [place] DAILYPRN PRN (Reason: constipation)
clonazepam [Klonopin] 0.5 mg Tablet
0.5 mg PO HS
bisacodyl [Dulcolax (bisacodyl)] 5 mg Tablet,Delayed Release (Dr/Ec)
5 mg PO DAILYPRN PRN (Reason: constipation)
pantoprazole 40 mg Tablet,Delayed Release (Dr/Ec)
40 mg PO DAILY
Eliquis 5 mg Tablet
5 mg PO Q12H
ipratropium-albuterol 0.5 mg-3 mg(2.5 mg base)/3 mL Solution For Nebulization
3 ml INHALATION R QID
benzonatate 100 mg Capsule
100 mg PO TIDPRN PRN (Reason: cough)
phenobarbital 30 mg Tablet
30 mg PO BID
furosemide 20 mg Tablet
10 mg PO DAILY@1400
furosemide 20 mg Tablet
20 mg PO DAILY
fluticasone propionate 50 mcg/actuation [place],Suspension
1 spray INTRANASAL HS
clonazepam 0.25 mg Tablet,Disintegrating
0.25 mg PO Q8HPRN PRN (Reason: anxiety)
clonazepam 0.25 mg Tablet,Disintegrating
0.25 mg PO DAILY
Referrals:
UNKNOWN,NO INTERVIEW [Family Provider] -
Interventions
Interventions:
*Risk Screen - Suicide Last Done: 04/16/24 06:37
*General Assessment Last Done: 04/16/24 06:37
*Neglect/Abuse Screening Last Done: 04/16/24 06:37
ED- Fall Risk Assessment Last Done: 04/16/24 07:51
*ED COVID-19 Vaccine History Last Done: 04/16/24 06:37
*Nursing Disposition Last Done: 04/16/24 10:45
ED-Musculoskeletal Assessment Last Done: 04/16/24 07:51
ED- Neurological Assessment Last Done: 04/16/24 06:43
ED-Skin Assessment Last Done: 04/16/24 07:51
Discharge Date and Time
Discharge Date/Time: 04/16/24 10:45
Print Language: HUNGARIAN
[2024-04-16 08:00] VITALS: BP 122/92
--- NOTE | 2024-04-16 09:00 | EDRN ---
ED documentation clerk called and is arranging discharge transport at this time.
--- NOTE | 2024-04-16 09:03 | EDRN ---
Report called to Gino Phan LPN at [facility] at this time.
[2024-04-16 09:06] VITALS: BP 143/94
[2024-04-16 10:08] VITALS: BP 112/89
--- NOTE | 2024-04-16 10:08 | EDRN ---
Pt requested to water and given some water to drink.
== END 2024-04-16 10:45 ==
LOC: EMR 06:24
PROVIDERS: EMERGENCY PHYSICIAN Emergency Medicine
DX: Z04.3 Encounter for examination and observation following other accident (principal); W19.XXXA Unspecified fall, initial encounter; E03.9 Hypothyroidism, unspecified; E78.00 Pure hypercholesterolemia, unspecified; F02.80 Dementia in other diseases classified elsewhere, unspecified severity, without behavioral disturbance, psychotic disturbance, mood disturbance, and anxiety; G20.A1 Parkinson's disease without dyskinesia, without mention of fluctuations; I10 Essential (primary) hypertension; J44.89 Other specified chronic obstructive pulmonary disease; Z87.891 Personal history of nicotine dependence; Z98.2 Presence of cerebrospinal fluid drainage device
CPT/HCPCS: 99284; 70450